=== PATIENT | female | born 1990 ===

== ENCOUNTER 2019-01-14 02:06 | Inpatient (IN) | payer MEDICAID ==
[2019-01-14] MEDS ORDERED: Nalbuphine 10 MG/1 ML Vial IVPUSH PRN (05:13)
[2019-01-14] MEDS ORDERED: Butorphanol 1 MG/ML SDV IVPUSH PRN (05:13)
[2019-01-14] MEDS ORDERED: Tranexamic Acid 1,000 MG in Sodium Chloride 0.9% 100 ML IV PRN (05:13)
[2019-01-14] MEDS ORDERED: Sodium Chloride 0.9% 10 ML Syringe FLUSH PRN (05:13)
[2019-01-14] MEDS ORDERED: Lidocaine 1% 50 ML MDV INJECT PRN (05:13)
[2019-01-14] MEDS ORDERED: Water For Irrigation,Sterile 1,000 ML Container IRR PRN (05:13)
[2019-01-14] MEDS ORDERED: Sodium Chloride 0.9% 2.5 ML Syringe FLUSH PRN (05:13)
[2019-01-14] MEDS ORDERED: Ondansetron 4 MG/2 ML SDV IV PRN (05:13)
[2019-01-14] MEDS ORDERED: Carboprost Tromethamine 250 MCG/1 ML Amp IM PRN (05:13)
[2019-01-14] MEDS ORDERED: Misoprostol 200 MCG Tab PO PRN (05:13)
[2019-01-14] MEDS ORDERED: Sodium Chloride 0.9% 10 ML SDV IV PRN (05:13)
[2019-01-14] MEDS ORDERED: Methylergonovine 0.2 MG/1 ML Amp IM PRN (05:13)
[2019-01-14] MEDS ORDERED: Oxytocin/0.9 % Sodium Chloride 30 UNIT/500 ML BAG IV SCH ×2 (05:15→16:45)
[2019-01-14] MEDS: Clindamycin Phosphate in D5W 900 MG in Premix Bag 1 BAG IV SCH ×6 (06:15→21:47)
[2019-01-14] MEDS: Lactated Ringers 1,000 ML IV SCH ×4 (06:17→21:48)
[2019-01-14] MEDS ORDERED: Clindamycin Phosphate in D5W 50 ML IV ONE ×2 (13:33→21:16)
[2019-01-14] MEDS ORDERED: fentaNYL 100 MCG/2 ML SDV ONE (15:50)
[2019-01-14] MEDS ORDERED: Lidocaine HCl/EPINEPHrine 5 ML IJ ONE (15:51)
[2019-01-14] MEDS ORDERED: Oxytocin/0.9 % Sodium Chloride 30 UNIT/500 ML BAG ONE (16:32)
[2019-01-14] MEDS ORDERED: Terbutaline 1 MG/ML SDV SUBCUT PRN (16:36)
--- NOTE | 2019-01-14 16:56 | PCM.PREANE ---
Preanesthetic Assessment - Procedure Proposed Procedure: Labor Epidural - Anesthesia/Transfusion/Family Hx Anesthesia History: No Prior Anesthesia Family History of Anesthesia Reaction: No Transfusion History: No Prior Transfusion(s) Intubation History: Unknown - Review of Systems General: No Symptoms Pulmonary: No Symptoms Cardiovascular: No Symptoms Gastrointestinal: No Symptoms Neurological: No Symptoms Other: Reports: None - Physical Assessment NPO Status Date: 01/14/19 (clear liquids) Pulse: 84 O2 Sat by Pulse Oximetry: 99 Respiratory Rate: 20 Blood Pressure: 152/80 Height: 1.59 m Weight: 85.729 kg - Lab Values: Laboratory Last Values WBC 16.57 K/uL (4.0-11.0) H 01/14/19 05:50 RBC 3.80 M/uL (4.30-5.90) L 01/14/19 05:50 Hgb 13.4 g/dL (12.0-16.0) 01/14/19 05:50 Hct 36.8 % (36.0-46.0) 01/14/19 05:50 MCV 96.8 fL (80.0-98.0) 01/14/19 05:50 MCH 35.3 pg (27.0-32.0) H 01/14/19 05:50 MCHC 36.4 g/dL (31.0-37.0) 01/14/19 05:50 RDW Std Deviation 43.8 fl (28.0-62.0) 01/14/19 05:50 RDW Coeff of David 12 % (11.0-15.0) 01/14/19 05:50 Plt Count 225 K/uL (150-400) 01/14/19 05:50 MPV 11.90 fL (7.40-12.00) 01/14/19 05:50 Nucleated RBC % 0.0 /100WBC 01/14/19 05:50 Nucleated RBCs # 0 K/uL 01/14/19 05:50 Urine Color YELLOW 01/14/19 02:50 Urine Appearance SLT CLOUDY 01/14/19 02:50 Urine pH 6.0 (5.0-8.0) 01/14/19 02:50 Ur Specific [place] 1.020 (1.001-1.035) 01/14/19 02:50 Urine Protein NEGATIVE mg/dL (NEGATIVE) 01/14/19 02:50 Urine Glucose (UA) NEGATIVE mg/dL (NEGATIVE) 01/14/19 02:50 Urine Ketones NEGATIVE mg/dL (NEGATIVE) 01/14/19 02:50 Urine Occult Blood LARGE (NEGATIVE) H 01/14/19 02:50 Urine Nitrite NEGATIVE (NEGATIVE) 01/14/19 02:50 Urine Bilirubin NEGATIVE (NEGATIVE) 01/14/19 02:50 Urine Urobilinogen 0.2 EU/dL (<2.0) 01/14/19 02:50 Ur Leukocyte Esterase TRACE (NEGATIVE) H 01/14/19 02:50 Membrane Rupture POSITIVE 01/14/19 04:50 Blood Type O POSITIVE 01/14/19 05:50 Antibody Screen NEGATIVE 01/14/19 05:50 - Allergies Allergies/Adverse Reactions: Allergies Allergy/AdvReac Type Severity Reaction Status Date / Time Penicillins Allergy Hives Verified 01/14/19 02:29 PreAnesthesia Questionnaire - Past Health History Medical/Surgical History: Denies 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 [No Known Home Meds] 08/15/16 [History] - CURRENT (IN HOUSE) MEDS Current Meds: Current Medications Butorphanol Tartrate (Stadol) 1 mg IVPUSH Q1H PRN PRN Reason: Pain Last Admin: 01/14/19 07:25 Dose: 1 mg Carboprost Tromethamine (Hemabate Ds) 250 mcg IM ASDIRECTED PRN PRN Reason: Post Hemorrhage Tranexamic Acid 1,000 mg/ (Sodium Chloride) 110 mls @ 660 mls/hr IV ONETIME PRN PRN Reason: Bleeding Lactated Ringer's (Ringers, Lactated) 1,000 mls @ 150 mls/hr IV ASDIRECTED VERONA Last Admin: 01/14/19 16:20 Dose: 999 mls/hr Oxytocin/Sodium Chloride (Oxytocin 30 Unit/500 Ml-Ns) 30 unit in 500 mls @ 999 mls/hr IV TITRATE VERONA Clindamycin Phosphate 900 mg/ (Premix) 50 mls @ 100 mls/hr IV Q8H VERONA Last Admin: 01/14/19 13:37 Dose: 100 mls/hr Oxytocin/Sodium Chloride (Oxytocin 30 Unit/500 Ml-Ns) 30 unit in 500 mls @ 2 mls/hr IV TITRATE VERONA; Protocol Lidocaine HCl (Xylocaine 1%) 50 ml INJECT ONETIME PRN PRN Reason: Laceration repair Methylergonovine Maleate (Methergine) 0.2 mg IM ASDIRECTED PRN PRN Reason: Post Hemorrhage Misoprostol (Cytotec) 200 mcg PO ONETIME PRN PRN Reason: Post Hemorrhage Nalbuphine HCl (Nubain) 10 mg IVPUSH Q1H PRN PRN Reason: Pain (severe 7-10) Ondansetron HCl (Zofran) 4 mg IV Q4H PRN PRN Reason: Nausea/Vomiting Sodium Chloride (Saline Flush) 10 ml FLUSH ASDIRECTED PRN PRN Reason: Keep Vein Open Sodium Chloride (Saline Flush) 2.5 ml FLUSH ASDIRECTED PRN PRN Reason: Keep Vein Open Sodium Chloride (Normal Saline) 10 ml IV ASDIRECTED PRN PRN Reason: IV Use Sterile Water (Sterile Water For Irrigation) 1,000 ml IRR ASDIRECTED PRN PRN Reason: delivery Terbutaline Sulfate (Brethine) 0.25 mg SUBCUT ASDIRECTED PRN PRN Reason: Tacysystole Discontinued Medications Fentanyl (Sublimaze) Confirm Administered Dose 100 mcg .ROUTE .STK-MED ONE Stop: 01/14/19 15:51 Clindamycin Phosphate (Cleocin In D5w) Confirm Administered Dose 50 mls @ as directed IV .STK-MED ONE Stop: 01/14/19 13:34 Fentanyl/Bupivacaine HCl (Aravnemx-Hulem-Gy 2 Mcg/Ml-0.125%) Confirm Administered Dose 100 mls @ as directed .ROUTE .STK-MED ONE Stop: 01/14/19 15:51 Oxytocin/Sodium Chloride (Oxytocin 30 Unit/500 Ml-Ns) Confirm Administered Dose 30 unit in 500 mls @ as directed .ROUTE .STK-MED ONE Stop: 01/14/19 16:33 Lidocaine/Epinephrine (Lidocaine 1.5%-Epi 1:200,000) Confirm Administered Dose 5 ml IJ .[facility]-MED ONE Stop: 01/14/19 15:52
--- NOTE | 2019-01-14 17:21 | PCM.PRNOTE ---
- Free Text/Narrative Note: 28y/o requested Labor Epidural to control pain. Currently active Labor, dilated 4-5 cm. Chart reviewed, discussed, ? answered. No contradictions to Labor Epidural. Risks, benefits, problems and complications discussed. Aware and accepts. Permit signed. Will procede. Height 5'2". Procedure sitting position. 15:56 Prep x3 with betadine 15:58 Skin local 4ml 1% lidocaine 16:04 Space L3-L4 16:05 Epidural space entered with 19g Touhey needle using ZACHARY with 2ml 0.9 NaCl and 1ml air. 16:06 Catheter @ 16:07 threaded with eaze to 5cm. Test dose 4ml 1.5% lidocaine with 1:200k epi. Test negative. 16:09 Bolus 6ml 0.125% bupivicaine with 100 mcg Fentanyl added. 16:13 Occlusive drsg/tegaderm and tape. Secured over right shoulder. Patient returned to supine with HOB at 30 degrees with R hip up. Pump started @ 7ml/hr with 4ml bolus q15. 16:24 Pain <2 when infusion started. Tolerated well. VSS FHR maintained
--- NOTE | 2019-01-14 18:06 | PCM.LDHP ---
L&D History of Present Illness - General Date of Service: 01/14/19 Admit Problem/Dx: Patient Status Order with Admit Dx/Problem 01/14/19 02:30 Patient Status [ADT] Routine 01/14/19 05:14 Patient Status [ADT] Routine Admission Diagnosis/Problem Admission Diagnosis/Problem - planned Source of Information: Patient History Limitations: Reports: No Limitations - History of Present Illness Pain Score: 8 Improves with: Reports: None Worsens with: Reports: None Associated Symptoms: Reports: N - Related Data Allergies/Adverse Reactions: Allergies Allergy/AdvReac Type Severity Reaction Status Date / Time Penicillins Allergy Hives Verified 01/14/19 02:29 Home Medications: Home Meds . 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: Dermatologic History: Reports: Eczema - Infectious Disease History Infectious Disease History: Reports: Chicken Pox - Past Surgical History HEENT Surgical History: Reports: Myringotomy w Tube(s) Social & Family History - Family History Family Medical History: Noncontributory - Tobacco Use Smoking Status *Q: Former Smoker Years of Tobacco use: 10 Packs/Tins Daily: 1 Used Tobacco, but Quit: No Second Hand Smoke Exposure: Yes - Caffeine Use Caffeine Use: Reports: Coffee, Energy Drinks - Recreational Drug Use Recreational Drug Use: No H&P Review of Systems - Review of Systems: Review Of Systems: See Below General: Reports: No Symptoms HEENT: Reports: No Symptoms Pulmonary: Reports: No Symptoms Cardiovascular: Reports: No Symptoms Gastrointestinal: Reports: No Symptoms Genitourinary: Reports: No Symptoms Musculoskeletal: Reports: No Symptoms Skin: Reports: No Symptoms Psychiatric: Reports: No Symptoms Neurological: Reports: No Symptoms Hematologic/Lymphatic: Reports: No Symptoms Immunologic: Reports: No Symptoms L&D Exam - Exam Exam: See Below - Vital Signs Vital Signs: Last Vital Signs Temp Pulse 84 01/14/19 16:56 Resp 20 01/14/19 16:56 BP 152/80 H 01/14/19 16:56 Pulse Ox 99 01/14/19 16:56 Weight: 85.729 kg - OB Specific Fundal Height In cm: 39 Contraction Intensity: Moderate Movement: Active Heart Tones: Present Presentation: Vertex - Snyder Score Snyder Score Cervix Position: Anterior Snyder Score Consistency: Soft Snyder Score Effacement: >80% Snyder Score Dilation: > 5 cm Snyder Score Infant's Station: -3 Snyder Score Total: 10 - Exam General: Alert, Oriented HEENT: PERRLA, Conjunctiva Clear, EACs Clear, EOMI, Hearing Intact, Mucosa Moist & [place], Nares Patent, Normal Nasal Septum, Posterior Pharynx Clear, TMs Clear Neck: Supple, Trachea Midline Lungs: Clear to Auscultation, Normal Respiratory Effort Cardiovascular: Regular Rate, Regular Rhythm GI/Abdominal Exam: Normal Bowel Sounds, Soft, Non-Tender, No Organomegaly, No Distention, No Abnormal Bruit, No Mass, Pelvis Stable Rectal Exam: Normal Exam, Normal Rectal Tone Genitourinary: Normal external exam, Normal bimanual exam, Normal speculum exam Back Exam: Normal Inspection, Full Range of Motion Extremities: Normal Inspection, Normal Range of Motion, Non-Tender, No Pedal Edema, Normal Capillary Refill Skin: Warm, Dry, Intact Neurological: Cranial Nerves Intact, Reflexes Equal Bilateral Psychiatric: Alert, Normal Affect, Normal Mood - Patient Data Lab Results Last 24 hrs: Laboratory Results - last 24 hr 01/14/19 01/14/19 01/14/19 Range/Units 02:50 04:50 05:50 WBC 16.57 H (4.0-11.0) K/uL RBC 3.80 L (4.30-5.90) M/uL Hgb 13.4 (12.0-16.0) g/dL Hct 36.8 (36.0-46.0) % MCV 96.8 (80.0-98.0) fL MCH 35.3 H (27.0-32.0) pg MCHC 36.4 (31.0-37.0) g/dL RDW Std Deviation 43.8 (28.0-62.0) fl RDW Coeff of David 12 (11.0-15.0) % Plt Count 225 (150-400) K/uL MPV 11.90 (7.40-12.00) fL Nucleated RBC % 0.0 /100WBC Nucleated RBCs # 0 K/uL Urine Color YELLOW Urine Appearance SLT CLOUDY Urine pH 6.0 (5.0-8.0) Ur Specific [place] 1.020 (1.001-1.035) Urine Protein NEGATIVE (NEGATIVE) mg/dL Urine Glucose (UA) NEGATIVE (NEGATIVE) mg/dL Urine Ketones NEGATIVE (NEGATIVE) mg/dL Urine Occult Blood LARGE H (NEGATIVE) Urine Nitrite NEGATIVE (NEGATIVE) Urine Bilirubin NEGATIVE (NEGATIVE) Urine Urobilinogen 0.2 (<2.0) EU/dL Ur Leukocyte Esterase TRACE H (NEGATIVE) Membrane Rupture POSITIVE Blood Type Antibody Screen 01/14/19 Range/Units 05:50 WBC (4.0-11.0) K/uL RBC (4.30-5.90) M/uL Hgb (12.0-16.0) g/dL Hct (36.0-46.0) % MCV (80.0-98.0) fL MCH (27.0-32.0) pg MCHC (31.0-37.0) g/dL RDW Std Deviation (28.0-62.0) fl RDW Coeff of David (11.0-15.0) % Plt Count (150-400) K/uL MPV (7.40-12.00) fL Nucleated RBC % /100WBC Nucleated RBCs # K/uL Urine Color Urine Appearance Urine pH (5.0-8.0) Ur Specific [place] (1.001-1.035) Urine Protein (NEGATIVE) mg/dL Urine Glucose (UA) (NEGATIVE) mg/dL Urine Ketones (NEGATIVE) mg/dL Urine Occult Blood (NEGATIVE) Urine Nitrite (NEGATIVE) Urine Bilirubin (NEGATIVE) Urine Urobilinogen (<2.0) EU/dL Ur Leukocyte Esterase (NEGATIVE) Membrane Rupture Blood Type O POSITIVE Antibody Screen NEGATIVE Result Diagrams: 01/14/19 05:50 Problem List Initiated/Reviewed/Updated: Yes Orders Last 24hrs: Active Orders 24 hr Category Date Time Status Patient Status [ADT] Routine ADT 01/14/19 05:14 Active Amniotic Fluid POC Testing [POC Labs] [RC] ASDIRECTED Care 01/14/19 04:34 Active Bedrest Bathroom Privileges [RC] ASDIRECTED Care 01/14/19 16:36 Active Communication Order [RC] ASDIRECTED Care 01/14/19 16:36 Active Communication Order [RC] ASDIRECTED Care 01/14/19 16:36 Active Heart Tones [RC] CONTINUOUS Care 01/14/19 05:14 Active Non Stress Test [RC] PER UNIT ROUTINE Care 01/14/19 05:14 Active May Shower [RC] ASDIRECTED Care 01/14/19 05:14 Active Notify Provider [RC] PRN Care 01/14/19 05:14 Active Notify Provider [RC] PRN Care 01/14/19 16:36 Active Oxygen Therapy [RC] ASDIRECTED Care 01/14/19 16:36 Active Up ad Saira [RC] ASDIRECTED Care 01/14/19 02:30 Active Up ad Saira [RC] ASDIRECTED Care 01/14/19 05:14 Active Vaginal Exam [RC] PRN Care 01/14/19 05:14 Active Vaginal Exam [RC] PRN Care 01/14/19 16:36 Active Vital Signs [RC] PER UNIT ROUTINE Care 01/14/19 02:30 Active Vital Signs [RC] PER UNIT ROUTINE Care 01/14/19 05:14 Active Vital Signs [RC] PER UNIT ROUTINE Care 01/14/19 16:36 Active Butorphanol [Stadol] Med 01/14/19 05:13 Active 1 mg IVPUSH Q1H PRN Carboprost Tromethamine [Hemabate DS] Med 01/14/19 05:13 Active 250 mcg IM ASDIRECTED PRN Clindamycin Phosphate in D5W [Cleocin in D5W] 900 mg Med 01/14/19 05:15 Active Premix Bag 1 bag IV Q8H Lactated Ringers [Ringers, Lactated] 1,000 ml Med 01/14/19 05:15 Active IV ASDIRECTED Lidocaine 1% [Xylocaine 1%] Med 01/14/19 05:13 Active 50 ml INJECT ONETIME PRN Methylergonovine [Methergine] Med 01/14/19 05:13 Active 0.2 mg IM ASDIRECTED PRN Nalbuphine [Nubain] Med 01/14/19 05:13 Active 10 mg IVPUSH Q1H PRN Ondansetron [Zofran] Med 01/14/19 05:13 Active 4 mg IV Q4H PRN Oxytocin/0.9 % Sodium Chloride [Oxytocin 30 Unit/500 ML Med 01/14/19 05:15 Active -NS] 30 unit in 500 ml IV TITRATE Oxytocin/0.9 % Sodium Chloride [Oxytocin 30 Unit/500 ML Med 01/14/19 16:45 Active -NS] 30 unit in 500 ml IV TITRATE Sodium Chloride 0.9% [Normal Saline] Med 01/14/19 05:13 Active 10 ml IV ASDIRECTED PRN Sodium Chloride 0.9% [Saline Flush] Med 01/14/19 05:13 Active 10 ml FLUSH ASDIRECTED PRN Sodium Chloride 0.9% [Saline Flush] Med 01/14/19 05:13 Active 2.5 ml FLUSH ASDIRECTED PRN Terbutaline [Brethine] Med 01/14/19 16:36 Active 0.25 mg SUBCUT ASDIRECTED PRN Tranexamic Acid [Cyklokapron] 1,000 mg Med 01/14/19 05:13 Active Sodium Chloride 0.9% [Normal Saline] 100 ml IV ONETIME Water For Irrigation,Sterile [Sterile Water for Med 01/14/19 05:13 Active Irrigation] 1,000 ml IRR ASDIRECTED PRN miSOPROStol [Cytotec] Med 01/14/19 05:13 Active 200 mcg PO ONETIME PRN Scalp Electrode [WOMSER] Per Unit Routine Oth 01/14/19 05:14 Ordered Medication Administration Instruction [OM.PC] Q3H Oth 01/14/19 16:45 Ordered Peripheral IV Insertion Adult [OM.PC] Routine Oth 01/14/19 05:14 Ordered Resuscitation Status Routine Resus Stat 01/14/19 05:13 Ordered Medication Orders Butorphanol Tartrate (Stadol) 1 mg IVPUSH Q1H PRN PRN Reason: Pain Last Admin: 01/14/19 07:25 Dose: 1 mg Carboprost Tromethamine (Hemabate Ds) 250 mcg IM ASDIRECTED PRN PRN Reason: Post Hemorrhage Tranexamic Acid 1,000 mg/ (Sodium Chloride) 110 mls @ 660 mls/hr IV ONETIME PRN PRN Reason: Bleeding Lactated Ringer's (Ringers, Lactated) 1,000 mls @ 150 mls/hr IV ASDIRECTED VERONA Last Admin: 01/14/19 16:20 Dose: 999 mls/hr Infusion: 01/14/19 16:20 Dose: 999 mls/hr Admin: 01/14/19 15:22 Dose: 999 mls/hr Infusion: 01/14/19 12:58 Dose: 150 mls/hr Admin: 01/14/19 06:17 Dose: 150 mls/hr Oxytocin/Sodium Chloride (Oxytocin 30 Unit/500 Ml-Ns) 30 unit in 500 mls @ 999 mls/hr IV TITRATE VERONA Clindamycin Phosphate 900 mg/ (Premix) 50 mls @ 100 mls/hr IV Q8H VERONA Last Admin: 01/14/19 13:37 Dose: 100 mls/hr Infusion: 01/14/19 06:45 Dose: 100 mls/hr Admin: 01/14/19 06:15 Dose: 100 mls/hr Oxytocin/Sodium Chloride (Oxytocin 30 Unit/500 Ml-Ns) 30 unit in 500 mls @ 2 mls/hr IV TITRATE [facility]; Protocol Last Admin: 01/14/19 16:55 Dose: 2 munits/min, 2 mls/hr Lidocaine HCl (Xylocaine 1%) 50 ml INJECT ONETIME PRN PRN Reason: Laceration repair Methylergonovine Maleate (Methergine) 0.2 mg IM ASDIRECTED PRN PRN Reason: Post Hemorrhage Misoprostol (Cytotec) 200 mcg PO ONETIME PRN PRN Reason: Post Hemorrhage Nalbuphine HCl (Nubain) 10 mg IVPUSH Q1H PRN PRN Reason: Pain (severe 7-10) Ondansetron HCl (Zofran) 4 mg IV Q4H PRN PRN Reason: Nausea/Vomiting Sodium Chloride (Saline Flush) 10 ml FLUSH ASDIRECTED PRN PRN Reason: Keep Vein Open Sodium Chloride (Saline Flush) 2.5 ml FLUSH ASDIRECTED PRN PRN Reason: Keep Vein Open Sodium Chloride (Normal Saline) 10 ml IV ASDIRECTED PRN PRN Reason: IV Use Sterile Water (Sterile Water For Irrigation) 1,000 ml IRR ASDIRECTED PRN PRN Reason: delivery Terbutaline Sulfate (Brethine) 0.25 mg SUBCUT ASDIRECTED PRN PRN Reason: Tacysystole
--- NOTE | 2019-01-15 01:35 | PCM.SN ---
- Free Text/Narrative Note: Called @0113 for increased pain and empty infusion. Labor progressing, +6 on pitocin. Bag changed. 5ml bolus given, infusion rate change, base increased to 8 and bolus changed to q12. Pain inproving.
[2019-01-15] MEDS ORDERED: Bupivacaine 0.25% 10 ML SDV ONE (01:59)
--- NOTE | 2019-01-15 02:14 | PCM.SN ---
- Free Text/Narrative Note: Patient somewhat uncomfortable after bolus. Bupivicaine 0.25% 5ml via epidural over 3 minutes. Doing better post, 9 cm + dilated.
[2019-01-15] MEDS ORDERED: Lidocaine 1% 50 ML MDV ONE (05:15)
[2019-01-15] MEDS ORDERED: Oxytocin 10 Units/1 ML SDV ONE (05:27)
[2019-01-15] MEDS ORDERED: Bisacodyl 10 MG Supp RECTAL PRN ×2 (05:34→11:29)
[2019-01-15] MEDS ORDERED: Ondansetron 4 MG/2 ML SDV IVPUSH PRN (05:34)
[2019-01-15] MEDS ORDERED: Acetaminophen/oxyCODONE 325-5 MG Tab PO PRN ×2 (05:34)
[2019-01-15] MEDS ORDERED: diphenhydrAMINE 50 MG/ML SDV IVPUSH PRN (05:34)
[2019-01-15] MEDS ORDERED: Lanolin 100% Cream 7 GM Tube TOP PRN ×2 (05:34→11:29)
[2019-01-15] MEDS ORDERED: Ketorolac 30 MG/ML SDV IVPUSH SCH (05:45)
[2019-01-15] MEDS ORDERED: Lactated Ringers 1,000 ML IV SCH (05:45)
--- NOTE | 2019-01-15 06:10 | OR ---
SURGEON: Eliel Cesar MD DATE OF PROCEDURE: Ms. Hernandez is a 28-year-old patient. She is primigravida. She is followed in our clinic primarily by me. She had no issue prenatally. Her GBS status was positive. The patient is admitted in active labor with spontaneous rupture of the membrane that was confirmed by [facility]. At the time of admission, she was 4 cm, 90 vertex, and -3. The patient started immediately on IV antibiotic as per protocol for her positive GBS status. The patient had continued to have regular contraction. She had epidural anesthesia for labor analgesia, and later on during the course of the labor, she required Pitocin augmentation to enhance labor. She became complete, complete, and after pushing for an hour and 40 minutes, she was able to accomplish a normal spontaneous vaginal delivery of a female fetus. score is 7 and 9, and the placenta delivered spontaneous, complete, and intact. There was a first-degree perineal laceration and that was repaired with 3-0 Vicryl after infiltrating the area with 1% Xylocaine. The placenta delivered spontaneous, complete, and intact. Estimated blood loss is 300 to 350 mL. heart rate was category I through the entire process of labor. There was no complication in the labor or of this patient. MARY / NICOLAS /[id number]
[2019-01-15] MEDS ORDERED: Benzocaine/Menthol 20%-0.5% Spray 78 GM Cannister ONE (06:54)
[2019-01-15] MEDS ORDERED: Witch Hazel Medicated Pads 40/Jar TOP ONE (06:54)
[2019-01-15] MEDS ORDERED: Docusate Sodium 100 MG Cap PO SCH (09:00)
[2019-01-15] MEDS ORDERED: Witch Hazel Medicated Pads 40/Jar TOP PRN (11:29)
[2019-01-15] MEDS ORDERED: Benzocaine/Menthol 20%-0.5% Spray 78 GM Cannister TOP PRN (11:29)
[2019-01-15] MEDS ORDERED: Docusate Sodium 100 MG Cap PO PRN (11:29)
[2019-01-15] MEDS ORDERED: Ibuprofen 400 MG Tab PO PRN (11:29)
[2019-01-15] MEDS ORDERED: Acetaminophen 500 MG Tab PO PRN (11:29)
[2019-01-15] MEDS ORDERED: oxyCODONE 5 MG Tab PO PRN (11:29)
[2019-01-15] MEDS: Ibuprofen 800 MG Tab PO PRN (12:09)
--- NOTE | 2019-01-15 13:53 | PCM48HPAN ---
Post Anesthesia Note - EVALUATION WITHIN 48HRS OF ANESTHETIC Vital Signs in Normal Range: Yes Patient Participated in Evaluation: Yes Respiratory Function Stable: Yes Airway Patent: Yes Cardiovascular Function Stable: Yes Hydration Status Stable: Yes Pain Control Satisfactory: Yes Nausea and Vomiting Control Satisfactory: Yes Mental Status Recovered: Yes Pulse Rate: 84 Resp Rate: 16 Blood Pressure: 152/80 - COMMENTS/OBSERVATIONS Free Text/Narrative:: no anesthesia problems
[2019-01-15] MEDS: Acetaminophen 500 MG Tab PO PRN (14:52)
[2019-01-16] MEDS: Acetaminophen 500 MG Tab PO PRN (01:25)
[2019-01-16] MEDS: Ibuprofen 800 MG Tab PO PRN ×2 (06:46→14:48)
--- NOTE | 2019-01-16 10:34 | PCM.PNPP ---
- General Info Date of Service: 01/16/19 Functional Status: Reports: Pain Controlled - Review of Systems General: Reports: No Symptoms HEENT: Reports: No Symptoms Pulmonary: Reports: No Symptoms Cardiovascular: Reports: No Symptoms Gastrointestinal: Reports: No Symptoms Genitourinary: Reports: No Symptoms Musculoskeletal: Reports: No Symptoms Skin: Reports: No Symptoms Neurological: Reports: No Symptoms Psychiatric: Reports: No Symptoms - General Info Date of Service: 01/16/19 - Patient Data Vital Signs - Most Recent: Last Vital Signs Temp 36.7 C 01/16/19 08:05 Pulse 71 01/16/19 08:05 Resp 16 01/16/19 08:05 BP 121/73 01/16/19 08:05 Pulse Ox 96 01/16/19 08:05 Weight - Most Recent: 85.729 kg Lab Results - Last 24 Hours: Laboratory Results - last 24 hr 01/16/19 Range/Units 05:50 Hgb 9.3 L (12.0-16.0) g/dL Hct 25.7 L (36.0-46.0) % Med Orders - Current: Current Medications Acetaminophen (Tylenol Extra Strength) 500 mg PO Q4H PRN PRN Reason: Pain Acetaminophen (Tylenol Extra Strength) 1,000 mg PO Q4H PRN PRN Reason: Pain Last Admin: 01/16/19 01:25 Dose: 1,000 mg Benzocaine/Menthol (Dermoplast Pain Relief 20%-0.5% [place]) 78 gm TOP ASDIRECTED PRN PRN Reason: Perineal Comfort Measure Last Admin: 01/15/19 20:09 Dose: 1 can Bisacodyl (Dulcolax) 10 mg RECTAL ONETIME PRN PRN Reason: Constipation Docusate Sodium (Colace) 100 mg PO BID PRN PRN Reason: Constipation Emollient Ointment (Lansinoh Hpa) 0 gm TOP ASDIRECTED PRN PRN Reason: Sore Nipples Last Admin: 01/16/19 00:17 Dose: 1 tube Oxytocin/Sodium Chloride (Oxytocin 30 Unit/500 Ml-Ns) 30 unit in 500 mls @ 2 mls/hr IV TITRATE [facility]; Protocol Last Titration: 01/15/19 03:00 Dose: 5 munits/min, 5 mls/hr Ibuprofen (Motrin) 400 mg PO Q4H PRN PRN Reason: Pain Ibuprofen (Motrin) 800 mg PO Q6H PRN PRN Reason: Pain Last Admin: 01/16/19 06:46 Dose: 800 mg Oxycodone HCl (Oxycodone) 5 mg PO Q2H PRN PRN Reason: Pain Sodium Chloride (Saline Flush) 10 ml FLUSH ASDIRECTED PRN PRN Reason: Keep Vein Open Sodium Chloride (Saline Flush) 2.5 ml FLUSH ASDIRECTED PRN PRN Reason: Keep Vein Open Sodium Chloride (Normal Saline) 10 ml IV ASDIRECTED PRN PRN Reason: IV Use Terbutaline Sulfate (Brethine) 0.25 mg SUBCUT ASDIRECTED PRN PRN Reason: Tacysystole Witch Maggie (Tucks) 1 pad TOP ASDIRECTED PRN PRN Reason: comfort care Last Admin: 01/15/19 20:08 Dose: 1 box Discontinued Medications Benzocaine/Menthol (Dermoplast Pain Relief 20%-0.5% [place]) Confirm Administered Dose 78 gm .ROUTE .STK-MED ONE Stop: 01/15/19 06:55 Last Admin: 01/15/19 06:56 Dose: 78 gm Bupivacaine HCl (Sensorcaine-Mpf 0.25%) Confirm Administered Dose 10 ml .ROUTE .STK-MED ONE Stop: 01/15/19 02:00 Butorphanol Tartrate (Stadol) 1 mg IVPUSH Q1H PRN PRN Reason: Pain Last Admin: 01/14/19 07:25 Dose: 1 mg Carboprost Tromethamine (Hemabate Ds) 250 mcg IM ASDIRECTED PRN PRN Reason: Post Hemorrhage Emollient Ointment (Lansinoh Hpa) 0 gm TOP ASDIRECTED PRN PRN Reason: Sore Nipples Last Admin: 01/15/19 06:57 Dose: 7 gm Fentanyl (Sublimaze) Confirm Administered Dose 100 mcg .ROUTE .STK-MED ONE Stop: 01/14/19 15:51 Tranexamic Acid 1,000 mg/ (Sodium Chloride) 110 mls @ 660 mls/hr IV ONETIME PRN PRN Reason: Bleeding Lactated Ringer's (Ringers, Lactated) 1,000 mls @ 150 mls/hr IV ASDIRECTED [place] Last Admin: 01/14/19 21:48 Dose: 150 mls/hr Oxytocin/Sodium Chloride (Oxytocin 30 Unit/500 Ml-Ns) 30 unit in 500 mls @ 999 mls/hr IV TITRATE [facility] Clindamycin Phosphate 900 mg/ (Premix) 50 mls @ 100 mls/hr IV Q8H [facility] Last Admin: 01/14/19 21:47 Dose: 100 mls/hr Clindamycin Phosphate (Cleocin In D5w) Confirm Administered Dose 50 mls @ as directed IV .STK-MED ONE Stop: 01/14/19 13:34 Last Admin: 01/14/19 21:34 Dose: Not Given Fentanyl/Bupivacaine HCl (Kgkwemvn-Ooqvn-Wd 2 Mcg/Ml-0.125%) Confirm Administered Dose 100 mls @ as directed .ROUTE .STK-MED ONE Stop: 01/14/19 15:51 Oxytocin/Sodium Chloride (Oxytocin 30 Unit/500 Ml-Ns) Confirm Administered Dose 30 unit in 500 mls @ as directed .ROUTE .STK-MED ONE Stop: 01/14/19 16:33 Clindamycin Phosphate (Cleocin In D5w) Confirm Administered Dose 50 mls @ as directed IV .STK-MED ONE Stop: 01/14/19 21:17 Last Admin: 01/15/19 02:47 Dose: Not Given Fentanyl/Bupivacaine HCl (Kentgqin-Jmimv-No 2 Mcg/Ml-0.125%) Confirm Administered Dose 100 mls @ as directed .ROUTE .STK-MED ONE Stop: 01/15/19 01:13 Ketorolac Tromethamine (Toradol) 30 mg IVPUSH Q6H [facility] Stop: 01/16/19 05:46 Lidocaine HCl (Xylocaine 1%) 50 ml INJECT ONETIME PRN PRN Reason: Laceration repair Last Admin: 01/15/19 05:40 Dose: 50 ml Lidocaine HCl (Xylocaine 1%) Confirm Administered Dose 50 ml .ROUTE .STK-MED ONE Stop: 01/15/19 05:16 Lidocaine/Epinephrine (Lidocaine 1.5%-Epi 1:200,000) Confirm Administered Dose 5 ml IJ .STK-MED ONE Stop: 01/14/19 15:52 Methylergonovine Maleate (Methergine) 0.2 mg IM ASDIRECTED PRN PRN Reason: Post Hemorrhage Misoprostol (Cytotec) 200 mcg PO ONETIME PRN PRN Reason: Post Hemorrhage Nalbuphine HCl (Nubain) 10 mg IVPUSH Q1H PRN PRN Reason: Pain (severe 7-10) Ondansetron HCl (Zofran) 4 mg IV Q4H PRN PRN Reason: Nausea/Vomiting Oxytocin (Pitocin) Confirm Administered Dose 10 unit .ROUTE .STK-MED ONE Stop: 01/15/19 05:28 Last Admin: 01/15/19 05:40 Dose: 10 unit Sterile Water (Sterile Water For Irrigation) 1,000 ml IRR ASDIRECTED PRN PRN Reason: delivery Witch Maggie (Tucks) Confirm Administered Dose 1 pad TOP .STK-MED ONE Stop: 01/15/19 06:55 Last Admin: 01/15/19 06:57 Dose: 1 pad - Interaction Disposition, : [place] in Room with Family Interaction: Holding Infant Infant Feeding: Attempted ; Nursed Fair/Poor Support Person: Significant Other - Recovery Exam Fundal Tone: Firms with Massage Fundal Level: 1 Fingerbreadths Below Umbilicus Fundal Placement: Midline Lochia Amount: Small Lochia Color: Rubra/Red Perineum Description: Edematous Episiotomy/Laceration: Approximated Bladder Status: Nonpalpable Urinary Elimination: Voided - Exam General: Alert, Oriented HEENT: Pupils Equal Neck: Supple Lungs: Clear to Auscultation, Normal Respiratory Effort Cardiovascular: Regular Rate, Regular Rhythm GI/Abdominal Exam: Normal Bowel Sounds, Soft, Non-Tender, No Organomegaly, No Distention, No Abnormal Bruit, No Mass, Pelvis Stable Extremities: Normal Inspection, Normal Range of Motion, Non-Tender, No Pedal Edema, Normal Capillary Refill Skin: Warm, Dry, Intact Wound/Incisions: Healing Well Neurological: No New Focal Deficit Psy/Mental Status: Alert, Normal Affect, Normal Mood - Problem List Review Problem List Initiated/Reviewed/Updated: Yes - My Orders Last 24 Hours: My Active Orders 01/15/19 11:29 Patient Status [ADT] Routine May Shower [RC] ASDIRECTED Acetaminophen [Tylenol Extra Strength] 1,000 mg PO Q4H PRN Acetaminophen [Tylenol Extra Strength] 500 mg PO Q4H PRN Benzocaine/Menthol [Dermoplast Pain Relief 20%-0.5% [place]] 78 gm TOP ASDIRECTED PRN Bisacodyl [Dulcolax] 10 mg RECTAL ONETIME PRN Docusate Sodium [Colace] 100 mg PO BID PRN Ibuprofen [Motrin] 400 mg PO Q4H PRN Ibuprofen [Motrin] 800 mg PO Q6H PRN Lanolin [Lansinoh HPA] See Dose Instructions TOP ASDIRECTED PRN Witch Maggie [Tucks] 1 pad TOP ASDIRECTED PRN oxyCODONE 5 mg PO Q2H PRN Assess Lochia [WOMSER] Per Unit Routine Assess Uterine Involution [WOMSER] Per Unit Routine Peripheral IV Discontinue [OM.PC] Routine 01/15/19 11:34 Code Status [Resuscitation Status] Routine - Assessment Assessment:: S/P doing well. - Plan Plan:: Send home today.
[2019-01-16] MEDS ORDERED: Ibuprofen 800 MG Tab PO PRN (12:00)
[2019-01-17] MEDS: Ibuprofen 800 MG Tab PO PRN (07:38)
[2019-01-17 07:39] VITALS: BP 134/83
--- NOTE | 2019-01-17 08:42 | PCM.DCSUM1 ---
Discharge Summary - Hospital Course Free Text/Narrative:: discharge home with infant; follow up 6 weeks Diagnosis: Stroke: No Modified Warren Scale: No Symptoms at All Modified Warren Scale Score: 0 - Discharge Data Discharge Date: 01/17/19 Discharge Disposition: DC/Tfer to [facility]osp[facility] Condition: Stable - Discharge Diagnosis/Problem(s) (1) (normal spontaneous vaginal delivery) SNOMED Code(s): 98684769 ICD Code: O80 - ENCOUNTER FOR FULL-TERM UNCOMPLICATED DELIVERY Status: Acute Priority: High Current Visit: Yes - Patient Instructions Diet: Usual Diet as Tolerated Activity: As Tolerated, No Strenuous Activities, Rest and Relax Today Driving: May Drive Today Showering/Bathing: May Shower Notify Provider of: Fever, Increased Pain, Nausea and/or Vomiting - Discharge Plan *PRESCRIPTION DRUG MONITORING PROGRAM REVIEWED*: Not Applicable *COPY OF PRESCRIPTION DRUG MONITORING REPORT IN PATIENT MARY JO: Not Applicable Prescriptions/Med Rec: Ibuprofen [Motrin] 800 mg PO Q8H PRN #90 tablet PRN Reason: Pain Home Medications: Home Meds Ibuprofen [Motrin] 800 mg PO Q8H PRN #90 tablet 01/17/19 [Rx] Oxygen Therapy Mode: Room Air Patient Handouts: Home Care Instructions for Mom, Vaginal Delivery, Care After Referrals: Eliel Cesar MD [Physician] - - Discharge Summary/Plan Comment DC Time >30 min.: Yes - General Info Date of Service: 01/17/19 Admission Dx/Problem (Free Text: Patient Status Order with Admit Dx/Problem 01/14/19 02:30 Patient Status [ADT] Routine 01/14/19 05:14 Patient Status [ADT] Routine Admission Diagnosis/Problem Admission Diagnosis/Problem - planned Functional Status: Reports: Pain Controlled - Review of Systems General: Reports: No Symptoms HEENT: Reports: No Symptoms Pulmonary: Reports: No Symptoms Cardiovascular: Reports: No Symptoms Gastrointestinal: Reports: No Symptoms Genitourinary: Reports: No Symptoms Musculoskeletal: Reports: No Symptoms Skin: Reports: No Symptoms Neurological: Reports: No Symptoms Psychiatric: Reports: No Symptoms - Patient Data Vitals - Most Recent: Last Vital Signs Temp 36.6 C 01/17/19 07:15 Pulse 86 01/17/19 07:15 Resp 18 01/17/19 07:15 BP 134/83 01/17/19 07:15 Pulse Ox 95 01/17/19 07:15 Weight - Most Recent: 85.729 kg Med Orders - Current: Current Medications Acetaminophen (Tylenol Extra Strength) 500 mg PO Q4H PRN PRN Reason: Pain Acetaminophen (Tylenol Extra Strength) 1,000 mg PO Q4H PRN PRN Reason: Pain Last Admin: 01/16/19 01:25 Dose: 1,000 mg Benzocaine/Menthol (Dermoplast Pain Relief 20%-0.5% [place]) 78 gm TOP ASDIRECTED PRN PRN Reason: Perineal Comfort Measure Last Admin: 01/15/19 20:09 Dose: 1 can Bisacodyl (Dulcolax) 10 mg RECTAL ONETIME PRN PRN Reason: Constipation Docusate Sodium (Colace) 100 mg PO BID PRN PRN Reason: Constipation Last Admin: 01/17/19 07:37 Dose: 100 mg Emollient Ointment (Lansinoh Hpa) 0 gm TOP ASDIRECTED PRN PRN Reason: Sore Nipples Last Admin: 01/16/19 00:17 Dose: 1 tube Oxytocin/Sodium Chloride (Oxytocin 30 Unit/500 Ml-Ns) 30 unit in 500 mls @ 2 mls/hr IV TITRATE [place]; Protocol Last Titration: 01/15/19 03:00 Dose: 5 munits/min, 5 mls/hr Ibuprofen (Motrin) 400 mg PO Q4H PRN PRN Reason: Pain Ibuprofen (Motrin) 800 mg PO Q6H PRN PRN Reason: Pain Last Admin: 01/17/19 07:38 Dose: 800 mg Oxycodone HCl (Oxycodone) 5 mg PO Q2H PRN PRN Reason: Pain Sodium Chloride (Saline Flush) 10 ml FLUSH ASDIRECTED PRN PRN Reason: Keep Vein Open Sodium Chloride (Saline Flush) 2.5 ml FLUSH ASDIRECTED PRN PRN Reason: Keep Vein Open Sodium Chloride (Normal Saline) 10 ml IV ASDIRECTED PRN PRN Reason: IV Use Terbutaline Sulfate (Brethine) 0.25 mg SUBCUT ASDIRECTED PRN PRN Reason: Tacysystole Witch Maggie (Tucks) 1 pad TOP ASDIRECTED PRN PRN Reason: comfort care Last Admin: 01/15/19 20:08 Dose: 1 box Discontinued Medications Benzocaine/Menthol (Dermoplast Pain Relief 20%-0.5% [place]) Confirm Administered Dose 78 gm .ROUTE .STK-MED ONE Stop: 01/15/19 06:55 Last Admin: 01/15/19 06:56 Dose: 78 gm Bupivacaine HCl (Sensorcaine-Mpf 0.25%) Confirm Administered Dose 10 ml .ROUTE .STK-MED ONE Stop: 01/15/19 02:00 Butorphanol Tartrate (Stadol) 1 mg IVPUSH Q1H PRN PRN Reason: Pain Last Admin: 01/14/19 07:25 Dose: 1 mg Carboprost Tromethamine (Hemabate Ds) 250 mcg IM ASDIRECTED PRN PRN Reason: Post Hemorrhage Emollient Ointment (Lansinoh Hpa) 0 gm TOP ASDIRECTED PRN PRN Reason: Sore Nipples Last Admin: 01/15/19 06:57 Dose: 7 gm Fentanyl (Sublimaze) Confirm Administered Dose 100 mcg .ROUTE .STK-MED ONE Stop: 01/14/19 15:51 Tranexamic Acid 1,000 mg/ (Sodium Chloride) 110 mls @ 660 mls/hr IV ONETIME PRN PRN Reason: Bleeding Lactated Ringer's (Ringers, Lactated) 1,000 mls @ 150 mls/hr IV ASDIRECTED [facility] Last Admin: 01/14/19 21:48 Dose: 150 mls/hr Oxytocin/Sodium Chloride (Oxytocin 30 Unit/500 Ml-Ns) 30 unit in 500 mls @ 999 mls/hr IV TITRATE [facility] Clindamycin Phosphate 900 mg/ (Premix) 50 mls @ 100 mls/hr IV Q8H [facility] Last Admin: 01/14/19 21:47 Dose: 100 mls/hr Clindamycin Phosphate (Cleocin In D5w) Confirm Administered Dose 50 mls @ as directed IV .STK-MED ONE Stop: 01/14/19 13:34 Last Admin: 01/14/19 21:34 Dose: Not Given Fentanyl/Bupivacaine HCl (Lytnxrmf-Auzia-Wb 2 Mcg/Ml-0.125%) Confirm Administered Dose 100 mls @ as directed .ROUTE .STK-MED ONE Stop: 01/14/19 15:51 Oxytocin/Sodium Chloride (Oxytocin 30 Unit/500 Ml-Ns) Confirm Administered Dose 30 unit in 500 mls @ as directed .ROUTE .STK-MED ONE Stop: 01/14/19 16:33 Clindamycin Phosphate (Cleocin In D5w) Confirm Administered Dose 50 mls @ as directed IV .STK-MED ONE Stop: 01/14/19 21:17 Last Admin: 01/15/19 02:47 Dose: Not Given Fentanyl/Bupivacaine HCl (Sksizkjf-Iokhj-Sm 2 Mcg/Ml-0.125%) Confirm Administered Dose 100 mls @ as directed .ROUTE .STZappedy-MED ONE Stop: 01/15/19 01:13 Ketorolac Tromethamine (Toradol) 30 mg IVPUSH Q6H [place] Stop: 01/16/19 05:46 Lidocaine HCl (Xylocaine 1%) 50 ml INJECT ONETIME PRN PRN Reason: Laceration repair Last Admin: 01/15/19 05:40 Dose: 50 ml Lidocaine HCl (Xylocaine 1%) Confirm Administered Dose 50 ml .ROUTE .STZappedy-MED ONE Stop: 01/15/19 05:16 Lidocaine/Epinephrine (Lidocaine 1.5%-Epi 1:200,000) Confirm Administered Dose 5 ml IJ .STZappedy-MED ONE Stop: 01/14/19 15:52 Methylergonovine Maleate (Methergine) 0.2 mg IM ASDIRECTED PRN PRN Reason: Post Hemorrhage Misoprostol (Cytotec) 200 mcg PO ONETIME PRN PRN Reason: Post Hemorrhage Nalbuphine HCl (Nubain) 10 mg IVPUSH Q1H PRN PRN Reason: Pain (severe 7-10) Ondansetron HCl (Zofran) 4 mg IV Q4H PRN PRN Reason: Nausea/Vomiting Oxytocin (Pitocin) Confirm Administered Dose 10 unit .ROUTE .STZappedy-MED ONE Stop: 01/15/19 05:28 Last Admin: 01/15/19 05:40 Dose: 10 unit Sterile Water (Sterile Water For Irrigation) 1,000 ml IRR ASDIRECTED PRN PRN Reason: delivery Ginger Serrano ([place]) Confirm Administered Dose 1 pad TOP .STK-MED ONE Stop: 01/15/19 06:55 Last Admin: 01/15/19 06:57 Dose: 1 pad - Exam General: Reports: Alert, Oriented, Cooperative, No Acute Distress Lungs: Reports: Clear to Auscultation, Normal Respiratory Effort Cardiovascular: Reports: Regular Rate, Regular Rhythm, No Murmurs GI/Abdominal Exam: Soft, Non-Tender (Female) Exam: Deferred Rectal (Female) Exam: Deferred Back Exam: Reports: Normal Inspection, Full Range of Motion Extremities: Normal Inspection, Normal Range of Motion Skin: Reports: Warm, Dry, Intact Wound/Incisions: Reports: Healing Well Neurological: Reports: No New Focal Deficit Psy/Mental Status: Reports: Alert, Normal Affect, Normal Mood
== END 2019-01-17 10:20 | disposition home or self-care (01) | DRG 807 ==
LOC: MW.OBCHECK 02:06 → MW.OB 02:08 → MW.OBCHECK 05:10 → MW.OB 05:13 → UNDODISOB 12:07 → OBSVTOIN 01-15 05:20 → MW.OB 01-15 11:28
PROVIDERS: ADMIT Obstetrics & Gynecology; ATTEND Obstetrics & Gynecology
PROC: 00HU33Z Insertion of Infusion Device into Spinal Canal, Percutaneous Approach (ICD-10-PCS; 2019-01-14)
PROC: 3E0R3BZ Introduction of Anesthetic Agent into Spinal Canal, Percutaneous Approach (ICD-10-PCS; 2019-01-14)
PROC: 10E0XZZ Delivery of Products of Conception, External Approach (ICD-10-PCS; principal; 2019-01-15)
PROC: 0HQ9XZZ Repair Perineum Skin, External Approach (ICD-10-PCS; principal; 2019-01-15)
DX: O99.824 Streptococcus B carrier state complicating childbirth (principal); Z37.0 Single live birth; O99.344 Other mental disorders complicating childbirth; F41.9 Anxiety disorder, unspecified; F32.9 Major depressive disorder, single episode, unspecified; O70.0 First degree perineal laceration during delivery; Z3A.40 40 weeks gestation of pregnancy; Z88.0 Allergy status to penicillin; Z87.891 Personal history of nicotine dependence
CPT/HCPCS: 36415; 51702; 59025; 59409; 81003; 84112; 85014; 85018; 85027; 86850; 86900; 86901; A9270-GY; J0595; J2001; J2590; J3010; J3490; J7120